=== PATIENT | female | born 1940 | race Caucasian/White ===

== ENCOUNTER 2022-11-02 20:00 | Emergency (ER) | payer MEDICARE, OTHER ==
[2022-11-02 20:23] LABS: BASOPHILS % (AUTO) 0.5 %; EOSINOPHILS # (AUTO) 0.3 10^3/uL (0.0-0.7); EOSINOPHILS % (AUTO) 4.4 %; HCT - HEMATOCRIT 39.6 % (37.0-47.0); LYMPHOCYTES # (AUTO) 0.9 10^3/uL (1.5-3.5); LYMPHOCYTES % (AUTO) 15.2 %; MEAN CORPUSCULAR HEMOGLOBIN 28.7 pg (27.0-31.0); MEAN CORPUSCULAR HGB CONC 30.3 g/dL (32.0-36.0); MEAN CORPUSCULAR VOLUME 94.7 fL (81.0-99.0); MEAN PLATELET VOLUME 8.8 fL (7.9-10.8); MONOCYTES # (AUTO) 0.5 10^3/uL (0.0-1.0); NEUTROPHILS % (AUTO) 70.7 %; PLT - PLATELET COUNT 246 10^3/uL (130-450); RED BLOOD COUNT 4.18 10^6/uL (4.20-5.40); RED CELL DISTRIBUTION WIDTH 15.3 % (12.0-15.0); WHITE BLOOD COUNT 5.6 x10^3/uL (4.8-10.8)
[2022-11-02 20:36] VITALS: BP 105/91; O2SAT 95
[2022-11-02 20:41] LABS: ALBUMIN 3.6 g/dL (3.2-5.5); ALBUMIN/GLOBULIN RATIO 1.4 (1.0-2.2); BILIRUBIN,TOTAL 0.6 mg/dL (0.2-1.0); CALCIUM 9.1 mg/dL (8.5-10.3); CREATININE 0.9 mg/dL (0.6-1.3); TOTAL PROTEIN 6.2 g/dL (6.4-8.9)
[2022-11-02] MEDS ORDERED: oxyCODONE 5 MG TABLET PO STA (21:05)
--- NOTE | 2022-11-02 21:09 | ED Physician Documentation ---
History of Present Illness - Stated complaint Stated Complaint: SWOLLEN LEGS, REDNESS ON LEGS - Chief complaint Chief Complaint: General - History obtained from History obtained from: Patient - Additonal information Additional information: The patient comes to the emergency department chief complaint of lower extremity edema that has been increasing over the last week or so. Patient states she has been up on her feet a lot and that her legs gotten so swollen that they hurt. She states she has not really been elevating her legs much, though she does sit in the recliner at home sometimes and can prop her legs up then. She has not been using any diuretics or pressure stockings. She does not know if she has congestive heart failure or not. She states she is on lisinopril "when I remember". She states she [place] a nurse practitioner [place] [facility] for her care. The patient denies fevers or chills. She states she does not feel ill, but just that her legs are tight and swollen and hurts when she bears weight. No other complaints at this time. States she is not short of breath. No chest pain or palpitations. She states she has had a heart murmur for most of her life. PD PAST MEDICAL HISTORY - Present Medications Home Medications: Ambulatory Orders Medication Instructions Recorded Confirmed Furosemide [Lasix] 40 mg PO DAILY #20 tablet 11/02/22 - Allergies Allergies/Adverse Reactions: Allergies Allergy/AdvReac Type Severity Reaction Status Date / Time No Known Drug Allergies Allergy Verified 11/02/22 20:29 PD ED PE NORMAL - Vitals Vital signs reviewed: Yes - General General: Alert and oriented X 3, No acute distress, Well developed/nourished - HEENT HEENT: Atraumatic, PERRL, EOMI, Moist mucous membranes - Neck Neck: Supple, no meningeal sign - Cardiac Cardiac: RRR, No murmur, Strong equal pulses - Respiratory Respiratory: No respiratory distress, Clear bilaterally - Abdomen Abdomen: Soft, Non tender, Non distended - Derm Derm: Warm and dry, Other (Moderate erythema symmetrically bilateral lower extremities in the setting of significant edema.) - Extremities Extremities: No deformity, Other (Marked edema bilateral lower extremities, extending from feet up into the thighs.) - Neuro Neuro: Alert and oriented X 3, show host/hostess 2-12 intact, No motor deficit, No sensory deficit, Normal speech - Psych Psych: Normal mood, Normal affect Results - Vitals Vitals: Vital Signs - 24 hr 11/02/22 20:21 Temperature 36.7 C Heart Rate 77 Respiratory 16 Rate Blood Pressure 105/91 H O2 Saturation 95 Oxygen O2 Source Room air - Labs Labs: Laboratory Tests 11/02/22 11/02/22 11/02/22 20:17 20:17 20:17 WBC 5.6 RBC 4.18 L Hgb 12.0 Hct 39.6 MCV 94.7 MCH 28.7 MCHC 30.3 L RDW 15.3 H Plt Count 246 MPV 8.8 Neut # (Auto) 4.0 Lymph # (Auto) 0.9 L [place] # (Auto) 0.5 Eos # (Auto) 0.3 Baso # (Auto) 0.0 Absolute Nucleated RBC 0.00 Nucleated RBC % 0.0 Sodium 138 Potassium 4.0 Chloride 107 Carbon Dioxide 26 Anion Gap 5.0 L BUN 28 H Creatinine 0.9 Estimated GFR (MDRD) 60 L Glucose 116 H Calcium 9.1 Total Bilirubin 0.6 AST 19 ALT 19 Alkaline Phosphatase 90 B-Natriuretic Peptide 1783 H Total Protein 6.2 L Albumin 3.6 Globulin 2.6 Albumin/Globulin Ratio 1.4 Lipase 20 PD Medical Decision Making - ED course Complexity details: reviewed results, re-evaluated patient, considered differential, d/w patient ED course: The patient was worked up with laboratory studies and chest x-ray. Her labs did show a significantly elevated BNP at 1700. Total protein was slightly low at 6.2. The patient's white blood cell count was normal. I discussed with the patient that the erythema on her legs is most likely due to the degree of swelling, and that the likelihood of completely symmetrical erythema onto disconnected areas representing infection would be exceedingly low. Furthermore, the patient has no fever or chills, a normal white blood cell count, and does not feel ill. I have discussed with her that at this time the most appropriate treatment is a course of diuretics, prescription grade pressure hose, and consistent elevation of her legs. The patient has a follow-up appointment with her primary care provider in proximately 2 weeks and can be reevaluated at that time. She has had a chest x-ray that shows borderline cardiomegaly and mild pulmonary vascular congestion, but the patient is asymptomatic and with regard to this at this time and has good oxygen saturation and does not clinically represent an acute exacerbation of CHF. Patient stable for discharge home. We have discussed home management of symptoms and the usual indications for return. Departure - Departure Disposition: 01 Home, Self Care Clinical Impression: Dependent edema Congestive heart failure Qualifiers: Heart failure type: unspecified Heart failure chronicity: chronic Qualified Code(s): I50.9 - Heart failure, unspecified Condition: Stable Instructions: ED CHF General, ED Edema Legs Bilateral Prescriptions: Furosemide [Lasix] 40 mg PO DAILY #20 tablet Comments: Your laboratory studies show a normal white blood cell count. Your congestive heart failure labs are significantly elevated, though your chest x-ray does not show the appearance of a severe, acute flareup of your congestive heart failure. Given that you are not really having any shortness of breath, this also makes an acute flare unlikely. However, with the underlying congestive heart failure and probably some loss of tone in the veins of your legs, not to mention your underlying arthritis and history of joint surgeries, it is not surprising that you are building up swelling in your legs. As such, you will need to take the diuretics that have been prescribed for you to help drain some of the fluid out of your system. The [facility] [place] at your request. You should start these in the morning. A prescription has also been provided for prescription grade compression hosiery. It is very important that you wear the pressure stockings every day. You have been given a tighter pair and a slightly less tight pair. You will probably need to roll them up over your legs because they are quite tight and can be difficult to just try to pull on. However, it is again very important that you do wear these as these can help significantly with the swelling. It is also important that whenever you are sitting or laying down, yo u prop your feet up. They do not have to be above the level of your heart but you should avoid having your legs hang down whenever possible to help clear some of the fluid, as well. At this point, there is no role for antibiotics. You do not have a fever, your white blood cell count is normal, and you do not have any other symptoms of systemic infection. Additionally, it is exceedingly rare for 2 separate and noncontiguous body parts to get a completely symmetrical infection in the exact same way, such as on 2 legs or 2 arms. The redness in your legs is most likely simply due to the pressure from the swelling itself. Please continue your plans to follow-up with your primary care provider in a couple of weeks. If you develop increasingly difficult breathing or fevers, please return to the emergency department for reevaluation. Forms: PCP List
--- NOTE | 2022-11-02 22:01 | XRAY Report ---
PROCEDURE: Chest 1 View X-Ray INDICATIONS: dyspnea TECHNIQUE: One view of the chest was acquired. COMPARISON: None. FINDINGS: Surgical changes and devices: None. Lungs and pleura: There is diffuse pulmonary vascular prominence with interstitial opacities consist ent with pulmonary edema. No pleural effusions or pneumothorax. Mediastinum: Mediastinal contours appear normal. Heart size is enlarged. Bones and chest wall: No suspicious bony lesions. Overlying soft tissues appear unremarkable. IMPRESSION: 1. Cardiomegaly and pulmonary edema compatible with congestive heart failure. Reviewed by: Ivan Velasquez MD on 11/02/2022 10:00 PM PDT Approved by: Ivan Velasquez MD on 11/02/2022 10:00 PM PDT Station ID: [id number]
== END 2022-11-02 22:18 | disposition home or self-care (01) ==
LOC: ED 20:00
DX: I50.9 Heart failure, unspecified (principal); R60.9 Edema, unspecified
CPT/HCPCS: 36415; 71045; 80053; 83690; 83880; 85025; 99284; A9270

== ENCOUNTER 2023-01-06 09:14 | Outpatient (CLI) | payer MEDICARE, OTHER | END 2023-01-06 09:15 | disposition home or self-care (01) | LOC: RT 09:14 | PROVIDERS: ATTEND Internal Medicine Cardiovascular Disease | DX: I50.22 Chronic systolic (congestive) heart failure (principal) | CPT/HCPCS: 93005 ==

== ENCOUNTER 2023-01-26 11:53 | Outpatient (CLI) | payer MEDICARE, OTHER | END 2023-01-26 11:54 | disposition home or self-care (01) | LOC: DI 11:53 | PROVIDERS: ATTEND Internal Medicine | DX: I11.0 Hypertensive heart disease with heart failure (principal); R60.0 Localized edema; I08.3 Combined rheumatic disorders of mitral, aortic and tricuspid valves; I27.20 Pulmonary hypertension, unspecified; I87.8 Other specified disorders of veins | CPT/HCPCS: 93306 ==